=== PATIENT | male | born 1960 | race Caucasian/White ===

== ENCOUNTER 2024-05-28 18:07 | Emergency (ER) | payer SELFPAY ==
[~2024-05-28] VITALS: Ht 162.6 cm; Wt 68.5 kg
[2024-05-28 18:09] VITALS: TEMP 98.6
[2024-05-28] MEDS: IBUPROFEN 400MG TABLET PO ONE (19:35)
[2024-05-28 20:40] VITALS: O2SAT 99
[2024-05-28] MEDS: KETAMINE HCL 50 MG/ML 10ML IV ONE (20:40)
[2024-05-28 20:42] VITALS: O2SAT 99
[2024-05-29] MEDS ORDERED: IBUP-2029 MT (00:25)
[2024-05-29] MEDS ORDERED: ACETAMINOPHEN 325MG TABLET PO ONE (01:15)
[2024-05-29] MEDS ORDERED: IBUPROFEN 400MG TABLET PO ONE (01:15)
[2024-05-29 01:39] VITALS: BP 144/72; PULSE 65; RESP 16; O2SAT 99
== END 2024-05-29 01:39 | disposition home or self-care (01) ==
LOC: ER 18:07
DX: S82.832A Other fracture of upper and lower end of left fibula, initial encounter for closed fracture (principal); M25.572 Pain in left ankle and joints of left foot; W11.XXXA Fall on and from ladder, initial encounter; Y93.89 Activity, other specified; Y92.89 Other specified places as the place of occurrence of the external cause; Y99.8 Other external cause status
CPT/HCPCS: 73600; 73610; 94664; 94070; 98960; 96374; 99285; J3490; Z7610 ×3